=== PATIENT | female | born 2005 | race Caucasian/White ===

== ENCOUNTER → 2024-09-13 | Outpatient (CLI) | payer OTHER | END | disposition home or self-care (01) | LOC: RAD 16:14 | PROVIDERS: ATTEND Physician Assistant | DX: S50.01XA Contusion of right elbow, initial encounter (principal); X58.XXXA Exposure to other specified factors, initial encounter; Y93.89 Activity, other specified; Y92.89 Other specified places as the place of occurrence of the external cause; Y99.8 Other external cause status ==